=== PATIENT | female | born 1985 | race African-American/Black ===

== ENCOUNTER 2021-06-15 05:47 | Inpatient (IN) ==
[2021-06-15] MEDS ORDERED: Sodium Citrate/Citric Acid LIQ 15 ML UDC PO ONE (06:51)
[2021-06-15] MEDS ORDERED: ceFOXitin 2 GM PREMIX 50 ML IVPB ONE (07:00)
[2021-06-15] MEDS ORDERED: Morphine PF AMP (0.5MG/ML) 5 MG/10 ML AMP ONE (07:22)
[2021-06-15] MEDS ORDERED: fentaNYL 100 mcg/2 ml 50 MCG/ML VIAL ONE (07:22)
[2021-06-15] MEDS ORDERED: Lactated Ringers 1000 ml BAG 1,000 ML IV ONE (08:19)
[2021-06-15] MEDS ORDERED: Buffered Lidocaine 1% SYRIN 1 ml INTRADERM ONE (08:19)
[2021-06-15 08:50] LABS: ABS Eosinophils 0.1 10^3/ul (0-0.6); ABS Lymphocytes 1.7 10^3/ul (1.0-4.8); ABS Monocytes 0.5 10^3/ul (0-0.8); ABS Neutrophils 6.1 10^3/ul (1.5-7.7); Eosinophil % 0.8 %; Hematocrit 32 % (35-47); Hemoglobin 10.5 g/dL (12.0-16.0); Lymphocyte % 19.7 %; Mean Corpuscular HGB Conc 33 g/dL (31-36); Mean Corpuscular Hemoglobin 24 pg (27-31); Mean Corpuscular Volume 73 fL (80-97); Mean Platelet Volume 8.9 fL (7.4-10.4); Platelet Count 185 10^3/uL (150-450); Red Blood Count 4.45 10^6 /uL (3.70-4.87); Red Cell Distribution Width 29 % (10-15); White Blood Count 8.4 10^3/uL (3.5-10.8)
[2021-06-15 09:00] LABS: Albumin 3.3 g/dL (3.2-5.2); Calcium 8.8 mg/dL (8.6-10.3); Globulin 3.3 g/dL (2-4); Total Bilirubin 0.6 mg/dL (0.2-1.0); Total Protein 6.6 g/dL (6.4-8.9); eGFR CKD-EPI 99.1 (>60)
[2021-06-15] MEDS ORDERED: Lactated Ringers 1000 ml BAG 1,000 ML IV SCH ×2 (09:00→13:00)
[2021-06-15] MEDS ORDERED: Dexamethasone IV 4 MG/ML VIAL 1 ml VIAL ONE (10:06)
[2021-06-15] MEDS ORDERED: Bupivacaine-MPF SPINAL 7.5 MG/ML - 2ML AMP ONE (10:06)
[2021-06-15] MEDS ORDERED: Propofol 10 MG/ML 20 ML BTL ONE ×2 (10:06→10:27)
[2021-06-15] MEDS ORDERED: Ondansetron 4 mg VIAL 2 MG/ML 2 ml VIAL ONE (10:06)
[2021-06-15] MEDS ORDERED: Oxytocin 10 UNITS/ML 1 ML VIAL ONE ×2 (10:06→11:17)
[2021-06-15] MEDS ORDERED: Succinylcholine 200 mg VIAL 20 mg/ml 10 ml VIAL (200 mg) ONE (10:06)
[2021-06-15] MEDS ORDERED: Midazolam 2 mg/2 ml VIAL 1 mg/ml 2 ml VIAL (2 mg) ONE ×2 (10:08→10:27)
[2021-06-15 10:50] LABS: Urine Benzodiazepine Screen None Detected (None Detect); Urine Cannabinoids Screen None Detected (None Detect); Urine Opiates Screen None Detected (None Detect)
[2021-06-15] MEDS ORDERED: Carboprost Tromethamine 250 mcg 1 ml VIAL ONE (11:00)
[2021-06-15] MEDS ORDERED: diPHENhydraMINE IV 50 MG/ML 1 ml VIAL (BENADRYL) IV PRN (11:47)
[2021-06-15] MEDS ORDERED: Naloxone 0.4 mg VIAL 0.4 mg/ml 1 ml VIAL IV PRN (11:47)
[2021-06-15] MEDS ORDERED: Ondansetron 4 mg VIAL 2 MG/ML 2 ml VIAL IV PRN (11:47)
[2021-06-15] MEDS ORDERED: HYDROcodone/ACETAMIN 5/325 mg TAB PO PRN (11:47)
[2021-06-15 12:01] LABS: Hematocrit 32 % (35-47); Hemoglobin 10.2 g/dL (12.0-16.0); Mean Corpuscular HGB Conc 32 g/dL (31-36); Mean Corpuscular Hemoglobin 24 pg (27-31); Mean Corpuscular Volume 75 fL (80-97); Mean Platelet Volume 9.2 fL (7.4-10.4); Platelet Count 189 10^3/uL (150-450); Red Blood Count 4.32 10^6 /uL (3.70-4.87); Red Cell Distribution Width 27 % (10-15); White Blood Count 17.7 10^3/uL (3.5-10.8)
[2021-06-15 12:02] LABS: Platelet Count 197 10^3/ul (150-450)
[2021-06-15 12:36] LABS: ABS Basophils 0.1 10^3/ul (0-0.2); ABS Eosinophils 0.1 10^3/ul (0-0.6); ABS Lymphocytes 0.9 10^3/ul (1.0-4.8); ABS Monocytes 0.5 10^3/ul (0-0.8); ABS Neutrophils 16.2 10^3/ul (1.5-7.7); Eosinophil % 0.3 %; Lymphocyte % 4.9 %; Schistocytes ABSENT
[2021-06-15 12:37] LABS: Activated Partial Thrombo Time 32.7 seconds (26.0-38.0); INR 1.04 (0.86-1.15)
[2021-06-15] MEDS ORDERED: Glycerin ADULT 2.4 gm SUPP PR PRN (12:45)
[2021-06-15] MEDS ORDERED: Dibucaine 1% OINT 28.35 GM TUBE PR PRN (12:45)
[2021-06-15] MEDS ORDERED: Witch Hazel PAD JAR TOPICAL PRN (12:45)
[2021-06-15] MEDS ORDERED: Carboprost Tromethamine 250 mcg 1 ml VIAL IM ONE (12:45)
[2021-06-15 12:52] LABS: Fibrinogen 352.7 mg/dL (110.8-404.3)
[2021-06-15] MEDS ORDERED: HYDROmorphone 0.5 MG/0.5 ML SYRINGE ONE (12:55)
[2021-06-15] MEDS: HYDROmorphone 0.5 MG/0.5 ML SYRINGE IV SLOW PU PRN ×3 (13:00→22:14)
[2021-06-15] MEDS: Oxytocin in LR 20 UNITS/1,000 ML BAG IVPB SCH ×2 (14:48→18:42)
[2021-06-15 17:53] LABS: Hematocrit 33 % (35-47); Hemoglobin 10.6 g/dL (12.0-16.0); Mean Corpuscular HGB Conc 32 g/dL (31-36); Mean Corpuscular Hemoglobin 24 pg (27-31); Mean Corpuscular Volume 74 fL (80-97); Mean Platelet Volume 8.8 fL (7.4-10.4); Platelet Count 191 10^3/uL (150-450); Red Blood Count 4.44 10^6 /uL (3.70-4.87); Red Cell Distribution Width 26 % (10-15); White Blood Count 14.2 10^3/uL (3.5-10.8)
[2021-06-15 18:00] LABS: ABS Lymphocytes 0.6 10^3/ul (1.0-4.8); ABS Monocytes 0.6 10^3/ul (0-0.8); Fibrinogen 363.2 mg/dL (110.8-404.3); INR 0.97 (0.86-1.15); Lymphocyte % 4.2 %
[2021-06-15 18:01] LABS: Activated Partial Thrombo Time 29.2 seconds (26.0-38.0); Platelet Count 191 10^3/ul (150-450); Schistocytes ABSENT
[2021-06-15] MEDS: Labetalol 300 mg TAB PO SCH (18:27)
[2021-06-16] MEDS ORDERED: OXYTOCIN 20 UNIT IVPB ONE (04:00)
[2021-06-16] MEDS ORDERED: LACTATED RINGERS IVPB ONE (04:00)
[2021-06-16] MEDS: HYDROmorphone 0.5 MG/0.5 ML SYRINGE IV SLOW PU PRN (04:18)
[2021-06-16] MEDS: Labetalol 300 mg TAB PO SCH ×2 (04:55→22:24)
[2021-06-16 06:48] LABS: Hematocrit 27 % (35-47); Hemoglobin 9.1 g/dL (12.0-16.0); Mean Corpuscular HGB Conc 33 g/dL (31-36); Mean Corpuscular Hemoglobin 25 pg (27-31); Mean Corpuscular Volume 75 fL (80-97); Mean Platelet Volume 8.8 fL (7.4-10.4); Platelet Count 151 10^3/uL (150-450); Red Blood Count 3.66 10^6 /uL (3.70-4.87); Red Cell Distribution Width 26 % (10-15)
[2021-06-16 06:52] LABS: ABS Lymphocytes 1.4 10^3/ul (1.0-4.8); ABS Monocytes 0.8 10^3/ul (0-0.8); ABS Neutrophils 7.7 10^3/ul (1.5-7.7); Eosinophil % 0.2 %; Lymphocyte % 14.2 %
[2021-06-17] MEDS: Labetalol 300 mg TAB PO SCH ×2 (08:22→21:33)
[2021-06-18] MEDS: Labetalol 300 mg TAB PO SCH (08:29)
[2021-06-18 12:19] VITALS: BP 135/66
== END 2021-06-18 14:54 | disposition home or self-care (01) | DRG 540 ==
LOC: MCHOB 05:47
PROVIDERS: ADMIT Obstetrics & Gynecology; ATTEND Obstetrics & Gynecology